=== PATIENT | male | born 1960 | race Hispanic/Latino ===

== ENCOUNTER 2019-05-11 12:35 | Observation (INO) | payer OTHER ==
[~2019-05-11] VITALS: Ht 172.7 cm; Wt 141.2 kg
[2019-05-11 13:19] LABS: BASOPHILS % (AUTO) 0.6 % (0.0-5.0); EOSINOPHILS % (AUTO) 2.9 % (0.0-8.0); HEMATOCRIT 30.5 % (42-54); LYMPHOCYTES % (AUTO) 22.2 % (21.0-51.0); MEAN CORPUSCULAR HEMOGLOBIN 27.8 pg (27.0-33.0); MEAN CORPUSCULAR HGB CONC 32.8 g/dL (32.0-36.0); MEAN CORPUSCULAR VOLUME 84.7 fL (79-99); NEUTROPHILS % (AUTO) 66.9 % (40.0-77.0); PLATELET COUNT (AUTO) 288 K/uL (130-400); RED CELL DISTRIBUTION WIDTH 13.2 % (11.0-15.5); WHITE BLOOD COUNT (AUTO) 12.7 K/uL (4.8-10.8)
[2019-05-11] MEDS ORDERED: SODIUM CHLORIDE 0.9% 1000ML 1,000 ML IV ONE (13:25)
[2019-05-11 13:27] LABS: CREATININE 1.6 mg/dL (0.5-1.5); POTASSIUM 5.1 mmol/L (3.5-5.1)
[2019-05-11 13:32] LABS: ALBUMIN 2.4 g/dL (3.5-5.0); BILIRUBIN,TOTAL 0.2 mg/dL (0.2-1.0); TOTAL PROTEIN, SERUM 6.6 g/dL (6.0-8.3)
[2019-05-11] MEDS ORDERED: ZOSYN 3.375GM+NS 50ML 50 ML IV ONE (13:44)
[2019-05-11] MEDS: SODIUM CHLORIDE 0.9% 1000ML 1,000 ML IV SCH (14:24)
[2019-05-11] MEDS ORDERED: DEXTROSE 50%-WATER 50 ML DISP.SYRIN IV PRN (14:30)
[2019-05-11] MEDS ORDERED: DIPHENHYDRAMINE HCL 25 MG CAPSULE PO PRN (14:30)
[2019-05-11] MEDS ORDERED: MAG HYDROX/AL HYDROX/SIMETH ES 30 ML SUSP UDCUP PO PRN (14:30)
[2019-05-11] MEDS ORDERED: POTASSIUM CHLORIDE 20 MEQ ERTAB PO PRN (14:30)
[2019-05-11] MEDS ORDERED: HYDROMORPHONE 1 MG/1 ML AMP IV PRN (14:30)
[2019-05-11] MEDS ORDERED: POTASSIUM CHLORIDE 10% ELIXIR 20 MEQ/15 ML UDCUP PO PRN (14:30)
[2019-05-11] MEDS ORDERED: LIDOCAINE HCL-MPF 1% 2ML VIAL IV PRN (14:30)
[2019-05-11] MEDS ORDERED: GUAIFENESIN-DM 200/20 MG 10 ML PO PRN (14:30)
[2019-05-11] MEDS ORDERED: IPRATROPIUM/ALBUTEROL SULFATE 3 ML SOLUTION IH PRN (14:30)
[2019-05-11] MEDS ORDERED: GLUCAGON 1MG KIT 1 MG ML IM PRN (14:30)
[2019-05-11] MEDS ORDERED: ONDANSETRON HCL 4 MG/2 ML VIAL IV PRN (14:30)
[2019-05-11] MEDS ORDERED: POTASSIUM CHLORIDE 20MEQ/100ML 100 ML IV PRN (14:30)
[2019-05-11] MEDS ORDERED: ACETAMINOPHEN 325 MG TAB PO PRN ×2 (14:30)
[2019-05-11] MEDS ORDERED: ACETAMINOPHEN-CODEINE 300/30MG TAB PO PRN (14:30)
[2019-05-11] MEDS ORDERED: LACTULOSE 20 GM/30 ML UDCUP PO PRN (14:30)
[2019-05-11] MEDS ORDERED: NITROGLYCERIN 1GM/1 INCH PACKET TD ONE (16:03)
[2019-05-11] MEDS: INSULIN HUMULIN R 100 UNIT/ML 3ML SQ SCH ×2 (16:30→22:37)
[2019-05-11] MEDS ORDERED: HYDRALAZINE HCL 20 MG/ML VIAL ONE (20:31)
[2019-05-11] MEDS ORDERED: ZOSYN 3.375GM+NS 50ML 50 ML IV SCH (21:00)
--- NOTE | 2019-05-11 21:40 | NUR ---
ADMISSION NOTE: Admitted to floor via stretcher. AOX3. Looking weak , but responsive. Placed in bed carefully and according to pt. comfort. VS checked and recorded. Assessment done. ( See CPOE flow chart for for full assessment. ) Plan of care initiated. Oriented to room and used of call light. Policies and procedures explained. Agreed and verbalized understanding. Nephro consult. Per ER staff , DR. Leon made aware at 1654. Endorsed accordingly to AM shift RN. No apparent distress / discomfort noted. Cared for and needs attended.
[2019-05-11 21:42] VITALS: BP 191/97
[2019-05-11] MEDS: FAMOTIDINE 20MG TAB 20 MG TAB PO SCH (22:45)
[2019-05-11] MEDS: HEPARIN SODIUM 5000UNIT/ML 1ML VIAL SQ SCH (22:46)
[2019-05-11 23:34] VITALS: BP 191/95
[2019-05-12] VITALS (7 sets, daily range): BP systolic 125–212; BP diastolic 54–96
[2019-05-12] MEDS: SODIUM CHLORIDE 0.9% 1000ML 1,000 ML IV SCH ×3 (03:51→16:46)
[2019-05-12] MEDS: HYDRALAZINE HCL 20 MG/ML VIAL IV PRN ×3 (03:52→17:30)
[2019-05-12] MEDS: MEROPENEM 1 GM VIAL IVP SCH ×3 (05:17→16:44)
[2019-05-12 05:36] LABS: BASOPHILS % (AUTO) 0.4 % (0.0-5.0); EOSINOPHILS % (AUTO) 2.8 % (0.0-8.0); HEMATOCRIT 29.7 % (42-54); LYMPHOCYTES % (AUTO) 22.8 % (21.0-51.0); MEAN CORPUSCULAR HGB CONC 33.3 g/dL (32.0-36.0); MEAN CORPUSCULAR VOLUME 83.9 fL (79-99); MONOCYTES % (AUTO) 5.5 % (3.0-13.0); NEUTROPHILS % (AUTO) 68.1 % (40.0-77.0); PLATELET COUNT (AUTO) 294 K/uL (130-400); RED BLOOD CELL COUNT(AUTO) 3.54 MIL/uL (4.50-6.20); RED CELL DISTRIBUTION WIDTH 13.2 % (11.0-15.5); WHITE BLOOD COUNT (AUTO) 11.3 K/uL (4.8-10.8)
[2019-05-12 05:39] LABS: HEMOGLOBIN A1C 8.6 % (4.0-6.0)
[2019-05-12 05:50] LABS: ALBUMIN 2.3 g/dL (3.5-5.0); BILIRUBIN,TOTAL 0.3 mg/dL (0.2-1.0); CREATININE 1.4 mg/dL (0.5-1.5); POTASSIUM 4.7 mmol/L (3.5-5.1); THYROID STIMULATING HORMONE 3.65 uIU/mL (0.36-3.74); TOTAL PROTEIN, SERUM 6.6 g/dL (6.0-8.3)
[2019-05-12] MEDS: INSULIN HUMULIN R 100 UNIT/ML 3ML SQ SCH ×4 (06:30→21:06)
[2019-05-12] MEDS: FAMOTIDINE 20MG TAB 20 MG TAB PO SCH ×2 (08:16→21:10)
[2019-05-12] MEDS: HEPARIN SODIUM 5000UNIT/ML 1ML VIAL SQ SCH ×2 (08:21→21:09)
[2019-05-12 09:19] LABS: APPEARANCE,URINE Clear (CLEAR); BILIRUBIN,URINE Negative (NEGATIVE); COLOR,URINE Yellow (YELLOW); GLUCOSE, URINE (UA) 250 mg/dL (NEGATIVE); KETONES,URINE Negative (NEGATIVE); LEUKOCYTE ESTERASE ,URINE Negative (NEGATIVE); NITRATE,URINE Negative (NEGATIVE); OCCULT BLOOD,URINE Trace (NEGATIVE); PROTEIN,URINE 300 mg/dL (NEGATIVE); UROBILINOGEN,URINE 0.2 mg/dL (0.2-1.0)
[2019-05-12 09:30] LABS: PROTEIN,URINE RANDOM 297.4 mg/dL (0-11.9)
[2019-05-12 09:38] LABS: BACTERIA,URINE Rare /HPF (None Seen); FINE GRANULAR CASTS,URINE 0-2 /LPF (None Seen); SQUAMOUS EPITHELIAL CELL,UR 0-2 /HPF (0-2); YEAST,URINE BUDDING Few /HPF (None Seen)
[2019-05-12] MEDS ORDERED: METOPROLOL TARTRATE 1 MG/ML 5ML VIAL IV PRN (10:30)
[2019-05-12] MEDS ORDERED: FLUCONAZOLE 100 MG TAB PO ONE (15:15)
[2019-05-12] MEDS ORDERED: LISINOPRIL 10 MG TABLET PO SCH (15:15)
[2019-05-12] MEDS ORDERED: TAMSULOSIN HCL 0.4 MG CAP.ER.24H PO SCH (15:15)
[2019-05-12] MEDS: LISINOPRIL 10 MG TABLET PO SCH (15:33)
[2019-05-12] MEDS: TAMSULOSIN HCL 0.4 MG CAP.ER.24H PO SCH (15:33)
[2019-05-12] MEDS: FLUCONAZOLE 100 MG TAB PO SCH (15:33)
--- NOTE | 2019-05-12 15:38 | NUR ---
RD Notification - DM, NANNETTE Pt admitted for NANNETTE, Dehydration, Leukocytosis, Hx DM. RD provided Diabetes nutrition education. NANNETTE resolved as per EMR. Pt reports tolerating current diet order with no report of GI distress, PO intake at 75%. Pt with chewing difficulty secondary to missing teeth. Recommend to add Mechanical soft diet order. Pt with elevated BG levels on 75gm CCD; Recommend to modify to 60gm CCD, double protein portion. Pt Obesity Class III (BMI 47.3). Pt LBM 05/10/19, Tarry stools noted. Pt monitored labs: BUN 40, GFR 55, BG 250, A1C 8.6, Alk 152, Alb 2.3. RD to continue to monitor. Please notify RD as additional nutrition concerns arise. Thank you. Addendum: 05/12/19 at 1546 by [address] RD Amended: Links added. Addendum: 05/12/19 at 1548 by [address]SE ANGEL MOSC[address]O RD RD Addendum Upon visit, Pt reports difficulty with managing self-care and would like to speak with someone regarding financial assistance and resources.
--- NOTE | 2019-05-12 16:58 | NUR ---
DCP HOME PER PATIENT, LIVES ALONE, IS INDEPENDENT WITH ADLS, DENIES PROVIDER OR COMMUNITY RESOURCES IN USE, HAS ROLLING WALKER, AND FEELS SAFE TO RETURN HOME. Addendum: 05/13/19 at 1700 by INDRA BUSTOS RN CM Amended: Links added.
[2019-05-12] MEDS ORDERED: DULO60CA64 PO (22:51)
[2019-05-12] MEDS ORDERED: ATOR40TA69 PO (22:51)
[2019-05-12] MEDS ORDERED: LEVO50TA11 PO (22:51)
[2019-05-12] MEDS ORDERED: HYDR25TA PO (22:51)
[2019-05-12] MEDS ORDERED: ERGO500014 PO (22:51)
[2019-05-13] MEDS: SODIUM CHLORIDE 0.9% 1000ML 1,000 ML IV SCH ×2 (01:01→09:00)
[2019-05-13 03:59] VITALS: BP 174/82
[2019-05-13] MEDS: HYDRALAZINE HCL 20 MG/ML VIAL IV PRN ×2 (04:28→12:12)
[2019-05-13] MEDS: MEROPENEM 1 GM VIAL IVP SCH (05:10)
[2019-05-13 05:30] VITALS: BP 144/62
[2019-05-13] MEDS: INSULIN HUMULIN R 100 UNIT/ML 3ML SQ SCH ×2 (06:33→12:26)
[2019-05-13 07:09] LABS: BASOPHILS % (AUTO) 0.3 % (0.0-5.0); EOSINOPHILS % (AUTO) 1.2 % (0.0-8.0); HEMATOCRIT 30.2 % (42-54); LYMPHOCYTES % (AUTO) 17.9 % (21.0-51.0); MEAN CORPUSCULAR HGB CONC 32.1 g/dL (32.0-36.0); MEAN CORPUSCULAR VOLUME 84.1 fL (79-99); MONOCYTES % (AUTO) 5.2 % (3.0-13.0); PLATELET COUNT (AUTO) 290 K/uL (130-400); RED BLOOD CELL COUNT(AUTO) 3.59 MIL/uL (4.50-6.20); RED CELL DISTRIBUTION WIDTH 13.4 % (11.0-15.5)
[2019-05-13 07:26] LABS: CREATININE 1.6 mg/dL (0.5-1.5); POTASSIUM 4.5 mmol/L (3.5-5.1)
[2019-05-13 07:30] VITALS: BP 162/100
[2019-05-13 07:34] LABS: % IRON SATURATION 38.8 % (30-44)
[2019-05-13] MEDS: LISINOPRIL 10 MG TABLET PO SCH (08:55)
[2019-05-13] MEDS: FLUCONAZOLE 100 MG TAB PO SCH (08:55)
[2019-05-13] MEDS: TAMSULOSIN HCL 0.4 MG CAP.ER.24H PO SCH (08:55)
[2019-05-13] MEDS: FAMOTIDINE 20MG TAB 20 MG TAB PO SCH (08:55)
[2019-05-13] MEDS: HEPARIN SODIUM 5000UNIT/ML 1ML VIAL SQ SCH (09:00)
[2019-05-13 11:00] VITALS: BP 170/80
[2019-05-13] MEDS ORDERED: FLUC100T8 PO (12:35)
[2019-05-13] MEDS ORDERED: TAMS-1 PO (12:35)
[2019-05-13] MEDS ORDERED: LISI10TA7 PO (12:35)
--- NOTE | 2019-05-13 14:17 | NUR ---
DISCHARGE NOTE DISCHARGE INSTRUCTIONS GIVEN TO PATIENT AND PATIENTS DAUGHTER. PROVIDED PRINTED RX FOR FLUCONAZOLE, LISINOPRIL AND FLOMAX. MADE AWARE OF FOLLOW UP APPOINTMENTS WITH PCP AND DR. SANFORD. PATIENT AND DAUGHTER VOICE UNDERSTANDING. IV TO LEFT HAND REMOVED WITH NO COMPLICATIONS. PATIENT AT THIS TIME DENIES SOB OR WEAKNESS. NO SIGNS AND SYMPTOMS OF ACUTE DISTRESS NOTED. PATIENT WILL BE TRANSPORTED HOME BY DAUGHTER.
== END 2019-05-13 14:50 | disposition home or self-care (01) ==
LOC: EDH 12:35 → EDHIP 13:12 → 4DH 20:37
PROVIDERS: ADMIT Internal Medicine Pulmonary Disease; ATTEND Internal Medicine Pulmonary Disease
DX: E11.65 Type 2 diabetes mellitus with hyperglycemia (principal); E11.22 Type 2 diabetes mellitus with diabetic chronic kidney disease; I13.0 Hypertensive heart and chronic kidney disease with heart failure and stage 1 through stage 4 chronic kidney disease, or unspecified chronic kidney disease; I50.30 Unspecified diastolic (congestive) heart failure; N18.9 Chronic kidney disease, unspecified; R42 Dizziness and giddiness; N39.0 Urinary tract infection, site not specified; D72.829 Elevated white blood cell count, unspecified; N17.9 Acute kidney failure, unspecified; E86.0 Dehydration; N40.0 Benign prostatic hyperplasia without lower urinary tract symptoms; E55.9 Vitamin D deficiency, unspecified; E66.01 Morbid (severe) obesity due to excess calories; E78.5 Hyperlipidemia, unspecified; E78.00 Pure hypercholesterolemia, unspecified; E11.319 Type 2 diabetes mellitus with unspecified diabetic retinopathy without macular edema; F32.9 Major depressive disorder, single episode, unspecified; E03.9 Hypothyroidism, unspecified; R53.81 Other malaise; E43 Unspecified severe protein-calorie malnutrition; N18.4 Chronic kidney disease, stage 4 (severe); H54.8 Legal blindness, as defined in USA; Z91.19 Patient's noncompliance with other medical treatment and regimen; Z79.899 Other long term (current) drug therapy; Z79.4 Long term (current) use of insulin; Z68.43 Body mass index [BMI] 50.0-59.9, adult
CPT/HCPCS: 36415 ×3; 71045; 76770; 80048; 80053 ×2; 81001; 82570; 82948 ×7; 83036; 83540; 83550; 83605; 84145; 84156; 84439; 84443; 85025 ×3; 87040 ×2; 87088; 93306; 94664; 96361 ×2; 96365; 96366; 96372 ×3; 96375; 96376 ×2; 97039 ×2; 97116 ×2; 97161; 99284; G0378 ×49; G8978; G8979; G8980; G8981; G8982; G8983; J0360 ×6; J1644 ×4; J1815 ×7; J2185 ×3; J2543 ×3; J7030

== ENCOUNTER 2019-06-07 14:39 | Emergency (ER) | payer OTHER ==
[~2019-06-07 14:39] MED LIST: ATOR40TA69 PO; DULO60CA64 PO; ERGO500014 PO; FLUC100T8 PO; HYDR25TA PO; LEVO50TA11 PO; LISI10TA7 PO; TAMS-1 PO
[2019-06-07] MEDS ORDERED: TETANUS/DIPHTHERIA TOXOID [ADULT] 0.5 ML VIAL IM ONE (14:58)
== END 2019-06-07 17:00 | disposition home or self-care (01) ==
LOC: EDH 14:39
DX: S50.811A Abrasion of right forearm, initial encounter (principal); R53.1 Weakness; E11.22 Type 2 diabetes mellitus with diabetic chronic kidney disease; N18.9 Chronic kidney disease, unspecified; F32.9 Major depressive disorder, single episode, unspecified; W18.39XA Other fall on same level, initial encounter; Y93.89 Activity, other specified; Y92.89 Other specified places as the place of occurrence of the external cause; Y99.8 Other external cause status
CPT/HCPCS: 73090; 90471; 90714

== ENCOUNTER → 2019-06-25 | Outpatient (CLI) | payer OTHER ==
[2019-06-25 16:11] LABS: ABG BASE EXCESS 4.4 mmol/L (-2.0-3.0); ABG HCO3 30.4 mmol/L (21.0-28.0); ABG OXYGEN SATURATION 94.7 % (95.0-99.0); ABG PCO2 51 mmHg (35-48)
== END ==
LOC: LAB 15:29
PROVIDERS: ATTEND Family Medicine
DX: R09.02 Hypoxemia (principal)
CPT/HCPCS: 36600; 82803